=== PATIENT | female | born 1950 | race Caucasian/White ===

== ENCOUNTER 2025-01-23 18:07 | Inpatient (IN) | payer MEDICARE, MEDICAID ==
[~2025-01-23] VITALS: Ht 152.4 cm; Wt 53.5 kg
[2025-01-23 18:08] VITALS: O2SAT 96
[2025-01-23] MEDS: SODIUM CHLORIDE 0.9% 1,000 ML IV ONE (19:09)
[2025-01-23 20:29] LABS: BASOPHILS % 0.6 % (0.0-2.0); EOSINOPHILS % 1.0 % (0.0-5.0); HEMATOCRIT. 37.8 % (36.0-48.0); HEMOGLOBIN. 12.2 g/dL (12.0-16.0); LYMPHOCYTES % 10.4 % (20.0-50.0); MEAN PLATELET VOLUME 8.9 fl (7.4-10.4); MONOCYTES % 4.9 % (2.0-8.0); NEUTROPHILS % 83.1 % (40.0-76.0); PLATELET 221 x1000/uL (130-400); RED BLOOD CELL COUNT 4.21 mill/uL (4.2-5.4); RED CELL DISTRIBUTION WIDTH 13.6 % (11.6-14.6)
[2025-01-23 20:44] LABS: CREATININE 0.9 mg/dL (0.6-1.0); UREA NITROGEN BLOOD 22 mg/dL (9-23)
[2025-01-23 20:45] LABS: ASPARTATE AMINOTRANSFERASE 26 IU/L (<34)
[2025-01-23 20:46] LABS: BILIRUBIN DIRECT < 0.1 mg/dL (<=3.0); BILIRUBIN TOTAL 0.2 mg/dL (0.1-1.0); PROTEIN TOTAL 6.4 g/dL (6.0-8.3)
[2025-01-23 21:12] LABS: TROPONIN I HIGH SENSITIVITY < 4 ng/L (3.0-34)
[2025-01-23 23:08] VITALS: BP 139/74; PULSE 85; RESP 20; TEMP 36.0844
[2025-01-23 23:16] LABS: CLARITY URINE CLEAR (CLEAR); COLOR URINE YELLOW (YELLOW); GLUCOSE URINE NEGATIVE (NEGATIVE); KETONES URINE NEGATIVE (NEGATIVE); LEUKOCYTE ESTERASE URINE NEGATIVE (NEGATIVE); NITRITE URINE NEGATIVE (NEGATIVE); OCCULT BLOOD URINE NEGATIVE (NEGATIVE); PH URINE 7.0 (4.5-8.0); PROTEIN URINE NEGATIVE (NEGATIVE); SPECIFIC GRAVITY URINE 1.016 (1.005-1.030); UROBILINOGEN URINE 0.2 E.U./dL (0.2-1.0)
[2025-01-23 23:24] LABS: *AMPHETAMINES SCREEN URINE NEGATIVE (NEGATIVE); *BARBITURATES SCREEN URINE NEGATIVE (NEGATIVE); *BENZODIAZEPINES SCREEN URINE NEGATIVE (NEGATIVE); *COCAINE SCREEN URINE NEGATIVE (NEGATIVE); CANNABINOID URINE SCREEN NEGATIVE (NEGATIVE); ECSTASY MDMA SCREEN URINE NEGATIVE (NEGATIVE); METHADONE URINE SCREEN NEGATIVE (NEGATIVE); OPIATES URINE SCREEN NEGATIVE (NEGATIVE); PHENCYCLIDINE URINE SCREEN NEGATIVE (NEGATIVE)
[2025-01-24] VITALS: BP 139/74; PULSE 85; RESP 20; TEMP 36.1; O2SAT 98
[2025-01-24 04:00] VITALS: BP 152/75; PULSE 86; RESP 20; TEMP 36.4; O2SAT 97
[2025-01-24 08:00] VITALS: BP 91/58; PULSE 86; RESP 18; TEMP 36.3; O2SAT 99
[2025-01-24 08:32] LABS: BASOPHILS % 0.7 % (0.0-2.0); EOSINOPHILS % 2.1 % (0.0-5.0); HEMATOCRIT. 38.5 % (36.0-48.0); HEMOGLOBIN. 12.7 g/dL (12.0-16.0); LYMPHOCYTES % 21.8 % (20.0-50.0); MEAN PLATELET VOLUME 8.9 fl (7.4-10.4); MONOCYTES % 6.4 % (2.0-8.0); NEUTROPHILS % 69.0 % (40.0-76.0); PLATELET 213 x1000/uL (130-400); RED BLOOD CELL COUNT 4.29 mill/uL (4.2-5.4); RED CELL DISTRIBUTION WIDTH 13.8 % (11.6-14.6)
[2025-01-24 08:45] LABS: CREATININE 0.7 mg/dL (0.6-1.0); UREA NITROGEN BLOOD 14 mg/dL (9-23)
[2025-01-24 08:47] LABS: ASPARTATE AMINOTRANSFERASE 29 IU/L (<34); BILIRUBIN TOTAL 0.3 mg/dL (0.1-1.0); PROTEIN TOTAL 6.6 g/dL (6.0-8.3)
[2025-01-24] MEDS: ENOXAPARIN 40MG/0.4ML SYR SUBCUT SCH (09:29)
[2025-01-24] MEDS ORDERED: MELO-106 PO (10:09)
[2025-01-24] MEDS ORDERED: LORA-249 PO (10:09)
[2025-01-24] MEDS ORDERED: LOSA50TA41 PO (10:09)
[2025-01-24] MEDS ORDERED: CALC-959 PO (10:09)
[2025-01-24] MEDS ORDERED: QUET100T34 MT (10:09)
[2025-01-24 12:00] VITALS: BP 148/72; PULSE 99; RESP 18; TEMP 36.7; O2SAT 95
[2025-01-24] MEDS: ACETAMINOPHEN 325MG TABLET PO PRN (15:27)
[2025-01-24 16:00] VITALS: BP 146/77; PULSE 96; RESP 20; TEMP 36.5; O2SAT 97
[2025-01-24] MEDS ORDERED: LORAZEPAM 0.5MG TABLET PO PRN (17:15)
[2025-01-24 20:00] VITALS: BP 130/101; PULSE 98; RESP 18; TEMP 37; O2SAT 97
[2025-01-24] MEDS: QUETIAPINE FUMARATE 50MG TABLET PO SCH (20:48)
[2025-01-25] VITALS: BP 121/65; PULSE 89; RESP 20; TEMP 36.8; O2SAT 98
[2025-01-25 04:00] VITALS: BP 124/61; PULSE 75; RESP 20; TEMP 36.9; O2SAT 98
[2025-01-25 08:00] VITALS: BP 147/70; PULSE 79; RESP 20; TEMP 35.9; O2SAT 98
[2025-01-25] MEDS: LOSARTAN 50 MG TABLET PO SCH (09:07)
[2025-01-25] MEDS: MELOXICAM 15 MG TABLET PO SCH (09:07)
[2025-01-25 16:00] VITALS: BP 138/79; PULSE 80; RESP 20; TEMP 37.1; O2SAT 98
[2025-01-25 17:26] VITALS: BP 138/79; PULSE 80; RESP 18; TEMP 98.8
[2025-01-25 20:00] VITALS: BP 151/75; PULSE 85; RESP 18; TEMP 37.2; O2SAT 99
== END 2025-01-25 21:10 | disposition home or self-care (01) | DRG 115 ==
LOC: ER 18:07 → 7WST 21:18 → EDBEDREQ 21:26 → EDBEDREQSVC 21:26 → EDBEDREQTM 21:26 → ENRESERV 21:35
PROVIDERS: ADMIT Internal Medicine; ATTEND Internal Medicine
DX: T17.228A Food in pharynx causing other injury, initial encounter (principal); G93.40 Encephalopathy, unspecified; L89.224 Pressure ulcer of left hip, stage 4; F02.80 Dementia in other diseases classified elsewhere, unspecified severity, without behavioral disturbance, psychotic disturbance, mood disturbance, and anxiety; I10 Essential (primary) hypertension; S30.810A Abrasion of lower back and pelvis, initial encounter; X58.XXXA Exposure to other specified factors, initial encounter; G30.9 Alzheimer's disease, unspecified; W44.8XXA Other foreign body entering into or through a natural orifice, initial encounter; Y93.89 Activity, other specified; Y92.89 Other specified places as the place of occurrence of the external cause; Y99.8 Other external cause status; Z88.0 Allergy status to penicillin
CPT/HCPCS: 36415; 71045; 80048; 80053; 80076; 80305; 80320; 81003; 82140; 82550; 84484; 85025; 93005; 99285; J1650; J7030; G0480

== ENCOUNTER 2025-01-25 22:43 | Inpatient (IN) | payer MEDICARE, MEDICAID ==
[~2025-01-25] VITALS: Ht 160 cm; Wt 60.8 kg
[~2025-01-25 22:43] MED LIST: CALC-959 PO; LORA-249 PO; LOSA50TA41 PO; MELO-106 PO; QUET100T34 MT
[2025-01-25 22:50] VITALS: O2SAT 96
[2025-01-26] MEDS: BISACODYL 5MG TABLET PO ONE (01:15)
[2025-01-26] MEDS ORDERED: SENNOSIDES/DOCUSATE SOD 8.6/50MG TABLET PO PRN (01:15)
[2025-01-26] MEDS: POLYETHYLENE GLYCOL 3350 (17GM) 1 DOSE PACK PO ONE (01:15)
[2025-01-26 02:21] LABS: BASOPHILS % 0.8 % (0.0-2.0); EOSINOPHILS % 1.9 % (0.0-5.0); HEMATOCRIT. 38.4 % (36.0-48.0); HEMOGLOBIN. 12.5 g/dL (12.0-16.0); LYMPHOCYTES % 15.5 % (20.0-50.0); MEAN PLATELET VOLUME 9.4 fl (7.4-10.4); MONOCYTES % 4.5 % (2.0-8.0); NEUTROPHILS % 77.3 % (40.0-76.0); PLATELET 211 x1000/uL (130-400); RED BLOOD CELL COUNT 4.32 mill/uL (4.2-5.4); RED CELL DISTRIBUTION WIDTH 13.7 % (11.6-14.6)
[2025-01-26 04:09] LABS: CREATININE 0.6 mg/dL (0.6-1.0); UREA NITROGEN BLOOD 12 mg/dL (9-23)
[2025-01-26 05:30] VITALS: BP 175/79; PULSE 86; RESP 16; TEMP 36.7; O2SAT 97
[2025-01-26] MEDS ORDERED: LORAZEPAM 0.5MG TABLET PO PRN (05:45)
[2025-01-26 06:01] VITALS: BP 175/79; PULSE 86; RESP 16; TEMP 36.696
[2025-01-26] MEDS: HYDROCODONE/ACETAMINOPHEN 5/325MG TABLET PO PRN (06:39)
[2025-01-26] MEDS: CLONIDINE 0.1MG TABLET PO PRN (06:39)
[2025-01-26 08:00] VITALS: BP 114/51; PULSE 64; RESP 18; TEMP 36.1; O2SAT 96
[2025-01-26] MEDS: LOSARTAN 50 MG TABLET PO SCH (08:59)
[2025-01-26] MEDS: MELOXICAM 7.5MG TABLET PO SCH (08:59)
[2025-01-26] MEDS: CALCIUM CARBONATE/VITAMIN D3 500MG TABLET PO SCH ×2 (09:00→18:21)
[2025-01-26] MEDS: ENOXAPARIN 40MG/0.4ML SYR SUBCUT SCH (09:19)
[2025-01-26 12:00] VITALS: BP 102/50; PULSE 68; RESP 17; TEMP 30.6; O2SAT 97
[2025-01-26 16:00] VITALS: BP 108/50; PULSE 68; RESP 18; TEMP 36.3; O2SAT 96
[2025-01-26] MEDS ORDERED: LOSARTAN 50 MG TABLET PO SCH (17:00)
[2025-01-26] MEDS ORDERED: MEDICATION NOT ON FORMULARY EA (Meloxicam 15 MG) PO SCH (17:00)
[2025-01-26] MEDS ORDERED: MEDICATION NOT ON FORMULARY EA (Quetiapine Fumarate 1 TAB) MT PRN (17:00)
[2025-01-26 20:00] VITALS: BP 121/64; PULSE 67; RESP 19; TEMP 36.7; O2SAT 96
[2025-01-26] MEDS: QUETIAPINE FUMARATE 50MG TABLET PO PRN (22:04)
[2025-01-27] VITALS: BP 141/58; PULSE 79; RESP 18; TEMP 36.5; O2SAT 96
[2025-01-27 04:00] VITALS: BP 127/46; PULSE 54; RESP 19; TEMP 36.5; O2SAT 98
[2025-01-27 08:00] VITALS: BP 126/69; PULSE 64; RESP 18; TEMP 36.3; TEMP 36.4; O2SAT 18; O2SAT 96
[2025-01-27 10:00] LABS: BASOPHILS % 0.8 % (0.0-2.0); EOSINOPHILS % 4.2 % (0.0-5.0); HEMATOCRIT. 38.1 % (36.0-48.0); HEMOGLOBIN. 12.4 g/dL (12.0-16.0); LYMPHOCYTES % 29.5 % (20.0-50.0); MEAN PLATELET VOLUME 8.4 fl (7.4-10.4); MONOCYTES % 7.0 % (2.0-8.0); NEUTROPHILS % 58.5 % (40.0-76.0); PLATELET 184 x1000/uL (130-400); RED BLOOD CELL COUNT 4.31 mill/uL (4.2-5.4); RED CELL DISTRIBUTION WIDTH 13.6 % (11.6-14.6)
[2025-01-27 10:16] LABS: CREATININE 0.6 mg/dL (0.6-1.0); UREA NITROGEN BLOOD 15 mg/dL (9-23)
[2025-01-27 12:00] VITALS: BP 142/62; PULSE 70; RESP 18; TEMP 36.2; O2SAT 97
[2025-01-27 16:00] VITALS: BP 124/46; PULSE 82; RESP 20; TEMP 36.4; O2SAT 96
[2025-01-27 19:35] LABS: GLUCOSE URINE NEGATIVE (NEGATIVE); KETONES URINE 1+ (NEGATIVE); LEUKOCYTE ESTERASE URINE 1+ (NEGATIVE); NITRITE URINE POSITIVE (NEGATIVE); OCCULT BLOOD URINE NEGATIVE (NEGATIVE); PH URINE 6.5 (4.5-8.0); PROTEIN URINE NEGATIVE (NEGATIVE); SPECIFIC GRAVITY URINE 1.020 (1.005-1.030); UROBILINOGEN URINE 0.2 E.U./dL (0.2-1.0)
[2025-01-27 19:56] LABS: COLOR URINE STRAW (YELLOW)
[2025-01-27 19:57] LABS: CLARITY URINE SL HAZY (CLEAR)
[2025-01-27 19:59] LABS: RBC URINE NONE SEEN /hpf (0-2)
[2025-01-27 20:00] VITALS: BP 137/69; PULSE 89; RESP 19; TEMP 37; O2SAT 97
[2025-01-27 20:02] LABS: SQUAMOUS EPITHELIAL CELL URINE RARE /lpf (RARE/1+)
[2025-01-27 20:08] LABS: BACTERIA URINE 3+
[2025-01-28] VITALS (7 sets, daily range): BP systolic 116–142; BP diastolic 62–89; PULSE 67–105; RESP 17–18; TEMP 36.6–37.2; O2SAT 95–98
[2025-01-28] MEDS ORDERED: CEFTRIAXONE 1GM/50ML 50 ML IV SCH (09:30)
[2025-01-28 09:51] LABS: BASOPHILS % 0.9 % (0.0-2.0); EOSINOPHILS % 1.8 % (0.0-5.0); HEMATOCRIT. 39.1 % (36.0-48.0); HEMOGLOBIN. 12.9 g/dL (12.0-16.0); LYMPHOCYTES % 23.5 % (20.0-50.0); MEAN PLATELET VOLUME 8.3 fl (7.4-10.4); MONOCYTES % 6.6 % (2.0-8.0); NEUTROPHILS % 67.2 % (40.0-76.0); PLATELET 213 x1000/uL (130-400); RED BLOOD CELL COUNT 4.43 mill/uL (4.2-5.4); RED CELL DISTRIBUTION WIDTH 13.3 % (11.6-14.6)
[2025-01-28 10:14] LABS: CREATININE 0.6 mg/dL (0.6-1.0)
[2025-01-28 10:15] LABS: UREA NITROGEN BLOOD 14 mg/dL (9-23)
[2025-01-28] MEDS: LEVOFLOXACIN 250MG TABLET PO SCH (10:41)
[2025-01-28] MEDS ORDERED: LEVO750T68 MT (11:49)
[2025-01-28] MEDS: LACTULOSE 20G/30ML UDC PO NR (14:16)
[2025-01-28] MEDS: NA PHOS,M-B/NA PHOS,DI-BA ENEMA 118ML PR ONE (22:06)
[2025-01-28] MEDS: NA PHOS,M-B/NA PHOS,DI-BA ENEMA 118ML PR NR (22:34)
[2025-01-29] VITALS: BP 103/73; PULSE 81; RESP 18; TEMP 36.4; O2SAT 97
[2025-01-29 04:00] VITALS: BP 121/69; PULSE 78; RESP 18; TEMP 36.3; O2SAT 97
[2025-01-29 08:00] VITALS: BP 132/90; PULSE 77; RESP 17; TEMP 37.1; O2SAT 96
[2025-01-29 12:00] VITALS: BP 124/53; PULSE 70; RESP 18; TEMP 36.9; O2SAT 95
[2025-01-29 16:00] VITALS: BP 129/60; PULSE 73; RESP 18; TEMP 36.9; O2SAT 98
[2025-01-29 20:00] VITALS: BP 144/76; PULSE 79; RESP 19; TEMP 36.7; O2SAT 100
[2025-01-30] VITALS: BP 110/77; PULSE 76; RESP 20; TEMP 36.2; O2SAT 98
[2025-01-30 04:00] VITALS: BP 120/78; PULSE 78; RESP 20; TEMP 36.2; O2SAT 98
[2025-01-30 08:00] VITALS: BP 114/60; PULSE 98; RESP 17; TEMP 36.8; O2SAT 98
[2025-01-30 12:00] VITALS: BP 126/72; PULSE 74; RESP 18; TEMP 36.7; O2SAT 98
[2025-01-30 16:00] VITALS: BP 104/54; PULSE 91; RESP 17; TEMP 36.5; O2SAT 96
[2025-01-30] MEDS ORDERED: NALOXONE HCL 0.4MG/ML VIAL IV PRN (17:00)
[2025-01-30 20:00] VITALS: BP 135/64; PULSE 83; RESP 20; TEMP 36.6; O2SAT 95
[2025-01-31] VITALS: BP 101/64; PULSE 75; RESP 20; TEMP 36.2; O2SAT 99
[2025-01-31 04:00] VITALS: BP 103/68; PULSE 85; RESP 20; TEMP 36.7; O2SAT 100
[2025-01-31 08:00] VITALS: BP 152/79; PULSE 95; RESP 16; TEMP 36.3; O2SAT 97
[2025-01-31 12:00] VITALS: BP 124/56; PULSE 78; RESP 16; TEMP 36.3; O2SAT 95
[2025-01-31 16:00] VITALS: BP 113/57; PULSE 76; RESP 18; TEMP 36.4; O2SAT 99
[2025-01-31 20:00] VITALS: BP 140/56; PULSE 96; RESP 20; TEMP 36.3; O2SAT 97
[2025-02-01 04:00] VITALS: BP 143/56; PULSE 92; RESP 20; TEMP 36.3; O2SAT 96
[2025-02-01 08:00] VITALS: BP 128/70; PULSE 89; RESP 18; TEMP 36.4; O2SAT 98
[2025-02-01] MEDS ORDERED: HYDRALAZINE 20MG/ML VIAL IV PRN (10:00)
[2025-02-01 12:00] VITALS: BP 121/60; PULSE 65; RESP 17; TEMP 36.2; O2SAT 98
[2025-02-01 16:00] VITALS: BP 143/79; PULSE 89; RESP 18; TEMP 36.6; O2SAT 98
[2025-02-01 20:00] VITALS: BP 112/67; PULSE 85; RESP 18; TEMP 36.6; O2SAT 95
[2025-02-02] VITALS: BP 148/64; PULSE 90; RESP 17; TEMP 36.7; O2SAT 98
[2025-02-02 04:00] VITALS: BP 159/81; PULSE 89; RESP 18; TEMP 36.7; O2SAT 95
[2025-02-02 08:00] VITALS: BP_SYST 113; BP_SYST 173; BP_DIAS 76; BP_DIAS 79; PULSE 86; PULSE 95; RESP 20; TEMP 36.3; O2SAT 95
[2025-02-02] MEDS: MELOXICAM 15 MG TABLET PO SCH (09:00)
[2025-02-02 12:00] VITALS: BP 125/57; PULSE 96; RESP 20; TEMP 36.3; O2SAT 96
[2025-02-02 16:00] VITALS: BP 113/76; PULSE 86; RESP 20; TEMP 36.3; O2SAT 95
[2025-02-02 20:00] VITALS: BP 117/67; PULSE 80; RESP 20; TEMP 36.1
[2025-02-03] VITALS: BP 123/68; PULSE 74; RESP 20; TEMP 36.7; O2SAT 99
[2025-02-03 04:00] VITALS: BP 129/66; PULSE 20; RESP 20; TEMP 36.7; O2SAT 99
[2025-02-03 08:00] VITALS: BP 135/85; PULSE 80; RESP 18; TEMP 36.4; O2SAT 95
[2025-02-03 12:00] VITALS: BP 113/57; PULSE 77; RESP 19; TEMP 36.4; O2SAT 98
[2025-02-03 15:42] VITALS: BP 135/85; PULSE 75; RESP 18; TEMP 98
[2025-02-03 16:00] VITALS: BP 109/55; PULSE 89; RESP 18; TEMP 36.4; O2SAT 97
== END 2025-02-03 21:34 | disposition home or self-care (01) | DRG 247 ==
LOC: ER 22:43 → 6EST 01-26 01:36 → EDBEDREQTM 01-26 01:45 → EDBEDREQ 01-26 01:45 → ENRESERV 01-26 01:59
PROVIDERS: ADMIT Internal Medicine; ATTEND Internal Medicine
DX: K56.41 Fecal impaction (principal); G93.40 Encephalopathy, unspecified; B69.0 Cysticercosis of central nervous system; N39.0 Urinary tract infection, site not specified; I10 Essential (primary) hypertension; G31.9 Degenerative disease of nervous system, unspecified; M48.55XA Collapsed vertebra, not elsewhere classified, thoracolumbar region, initial encounter for fracture; G30.9 Alzheimer's disease, unspecified; F02.80 Dementia in other diseases classified elsewhere, unspecified severity, without behavioral disturbance, psychotic disturbance, mood disturbance, and anxiety; Z88.0 Allergy status to penicillin; K44.9 Diaphragmatic hernia without obstruction or gangrene
CPT/HCPCS: 36415; 72040; 74176; 80048; 81003; 82962; 85025; 97162; 99285; A4606; J1650